=== PATIENT | male | born 1990 | race Caucasian/White ===

== ENCOUNTER 2018-07-15 13:43 | Emergency (ER) | payer BC ==
[~2018-07-15] VITALS: Ht 190.5 cm; Wt 78.5 kg
--- NOTE | 2018-07-15 14:13 | NUR ---
Dr Rose at the bedside for MSE.
[2018-07-15] MEDS ORDERED: MECLIZINE HCL 25 MG TABLET ONE (14:21)
[2018-07-15 14:22] VITALS: BP 107/66
--- NOTE | 2018-07-15 14:24 | NUR ---
Patient discharged to home in stable conditon. Written and verbal after care instructions given. Patient verbalizes understanding of instructions.
[2018-07-15] MEDS ORDERED: MECLIZINE HCL 25 MG TABLET PO ONE (14:30)
== END 2018-07-15 14:24 | disposition home or self-care (01) ==
LOC: ER 13:43
DX: R42 Dizziness and giddiness (principal); Z88.1 Allergy status to other antibiotic agents; Z88.8 Allergy status to other drugs, medicaments and biological substances; Z90.49 Acquired absence of other specified parts of digestive tract
CPT/HCPCS: A4663; J8597

== ENCOUNTER 2018-10-01 20:50 | Emergency (ER) | payer BC ==
[~2018-10-01] VITALS: Ht 190.5 cm; Wt 78.5 kg
--- NOTE | 2018-10-01 21:00 | NUR ---
Patient ambulated with stable gait. Speech clear speaks in complete sentences. No neuro deficits. A/Ox4. Patient came for c/o nausea and dizziness. Respiratory even and unlabored, no cough no sob.
[2018-10-01] MEDS ORDERED: ONDANSETRON ODT 4 MG TAB.RAPDIS SL ONE (21:30)
[2018-10-01] MEDS ORDERED: ONDANSETRON ODT 4 MG TAB.RAPDIS ONE (21:48)
[2018-10-01] MEDS ORDERED: IV NORMAL SALINE 1000 ML BAG IV ONE ×2 (22:15→23:45)
[2018-10-01] MEDS ORDERED: MECLIZINE HCL 25 MG TABLET PO ONE (22:15)
[2018-10-01] MEDS ORDERED: ONDANSETRON 4 MG/2 ML VIAL IV ONE (22:15)
[2018-10-01] MEDS ORDERED: ONDANSETRON 4 MG/2 ML VIAL ONE (22:45)
[2018-10-01] MEDS ORDERED: MECLIZINE HCL 25 MG TABLET ONE (23:25)
--- NOTE | 2018-10-01 23:50 | NUR ---
IV NaCL 0.9% 1L completed at [id number]
[2018-10-01 23:55] LABS: BASOPHILS # (AUTO) 0.1 K/uL (0.0-8.0); BASOPHILS % (AUTO) 0.8 % (0.0-2.0); EOSINOPHILS # (AUTO) 0.1 K/uL (0.0-0.7); EOSINOPHILS % (AUTO) 2.3 % (0.0-7.0); HEMATOCRIT 41.6 % (36.7-47.1); HEMOGLOBIN 14.1 g/dL (12.5-16.3); LYMPHOCYTES # (AUTO) 2.7 K/uL (20.0-40.0); LYMPHOCYTES % (AUTO) 43.4 % (20.5-51.5); MEAN CORPUSCULAR HGB CONC 34 g/dL (32.5-36.3); MEAN CORPUSCULAR VOLUME 82.8 fL (73.0-96.2); MONOCYTES # (AUTO) 0.5 K/uL (2.0-10.0); MONOCYTES % (AUTO) 7.2 % (0.0-11.0); NEUTROPHILS # (AUTO) 2.9 K/uL (1.8-8.9); NEUTROPHILS % (AUTO) 46.3 % (38.5-71.5); PLATELET COUNT (AUTO) 205 K/uL (152-348); RED BLOOD CELL COUNT(AUTO) 5.03 MIL/uL (4.06-5.63); WHITE BLOOD COUNT (AUTO) 6.3 K/uL (3.6-10.2)
[2018-10-01 23:59] LABS: CREATININE 0.9 mg/dL (0.6-1.3); POTASSIUM 3.6 mmol/L (3.5-5.1)
[2018-10-02 00:05] LABS: BILIRUBIN,TOTAL 0.4 mg/dL (0.2-1.0); TOTAL PROTEIN, SERUM 7.2 g/dL (6.4-8.2)
--- NOTE | 2018-10-02 00:55 | NUR ---
IV NaCL 0.9% 1L completed at 0055
--- NOTE | 2018-10-02 01:17 | NUR ---
Patient discharged to home in stable conditon. Written and verbal after care instructions given. Patient verbalizes understanding of instructions. Patient ambulated with stable gait.
[2018-10-02 01:26] VITALS: BP 120/81
== END 2018-10-02 01:27 | disposition home or self-care (01) ==
LOC: ER 20:50
DX: H81.10 Benign paroxysmal vertigo, unspecified ear (principal); T36.3X1A Poisoning by macrolides, accidental (unintentional), initial encounter; Z90.49 Acquired absence of other specified parts of digestive tract; Z88.1 Allergy status to other antibiotic agents; Z88.8 Allergy status to other drugs, medicaments and biological substances; Y92.89 Other specified places as the place of occurrence of the external cause
CPT/HCPCS: 36415; 80053; 84484; 85025; 93005; 96361; 96374; 99284; J2405; 70030-TC; A4663; J7030; J8597; Q0162

== ENCOUNTER 2020-02-16 00:32 | Emergency (ER) | payer BC ==
[~2020-02-16] VITALS: Ht 190.5 cm; Wt 77.1 kg
[2020-02-16] MEDS ORDERED: ONDANSETRON 4 MG/2 ML VIAL IV ONE ×2 (01:00→01:45)
[2020-02-16] MEDS ORDERED: HYDROMORPHONE 1 MG/1 ML DISP.SYRIN IV ONE (01:00)
[2020-02-16] MEDS ORDERED: IV NORMAL SALINE 1000 ML BAG IV ONE (01:00)
[2020-02-16] MEDS ORDERED: ONDANSETRON 4 MG/2 ML VIAL ONE ×2 (01:18→01:51)
[2020-02-16] MEDS ORDERED: MORPHINE SULFATE 2 MG/1 ML DISP.SYRIN ONE (01:19)
[2020-02-16] MEDS: MORPHINE SULFATE 2 MG/1 ML DISP.SYRIN IV ONE ×2 (01:25→01:33)
--- NOTE | 2020-02-16 01:25 | NUR ---
Patient stated sharp pain of his head around his left eye 8/10. Patient was administered normal saline bolus, zofran 4mg, and morphine 2mg for his pain. Pending reassessment for pain improvement.
--- NOTE | 2020-02-16 01:26 | NUR ---
Patient out of unit for ct scan via [place].
--- NOTE | 2020-02-16 01:35 | NUR ---
Patient back from ct scan with no distress noted.
--- NOTE | 2020-02-16 01:56 | NUR ---
Stated improvement in his left head pain decreasing to 4/10. However, he is still nauseous and was ordered a second dose of zofran, pending reassessment.
--- NOTE | 2020-02-16 02:20 | NUR ---
Patient states nausea has improved and his head pain is now 3/10.
--- NOTE | 2020-02-16 03:15 | NUR ---
Patient discharged to home in stable condition. Written and verbal after care instructions given. Patient verbalizes understanding of instructions. Stressed follow up or return to ER for worsening s/s. Patient ambulates well, advised to not drive home, allowed use of a phone to arrange pick-up, took all belongings, provided & signed ACI.
[2020-02-16 03:24] VITALS: BP 118/74
== END 2020-02-16 03:15 | disposition home or self-care (01) ==
LOC: ER 00:38
DX: G43.909 Migraine, unspecified, not intractable, without status migrainosus (principal)
CPT/HCPCS: 70450; 96361; 96374; 96375; 99284; J2270; J2405 ×2; A4663; J7030